=== PATIENT | female | born 2005 | race Caucasian/White ===

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

== ENCOUNTER 2023-10-11 22:49 | Emergency (ER) | payer OTHER ==
[~2023-10-11] VITALS: Ht 160 cm; Wt 87.1 kg
[2023-10-11 22:50] VITALS: BP 120/72; TEMP 97.2; O2SAT 99
== END 2023-10-12 00:43 | disposition home or self-care (01) ==
LOC: M ED 22:49
DX: Z20.811 Contact with and (suspected) exposure to meningococcus (principal); Z11.52 Encounter for screening for COVID-19; F12.10 Cannabis abuse, uncomplicated; Z87.891 Personal history of nicotine dependence; Z88.0 Allergy status to penicillin; Z79.899 Other long term (current) drug therapy

== ENCOUNTER 2023-11-06 10:05 | Emergency (ER) | payer OTHER ==
[~2023-11-06] VITALS: Ht 157.5 cm; Wt 86.2 kg
[2023-11-06 10:07] VITALS: BP 164/88; TEMP 98.2; O2SAT 97
[2023-11-06] MEDS ORDERED: NORG1TAB33 (10:13)
[2023-11-06 11:50] LABS: RSV AMPLIFICATION NEGATIVE (NEGATIVE)
[2023-11-06] MEDS ORDERED: ONDA-282 PO (12:25)
[2023-11-06] MEDS ORDERED: BENZ200C70 PO (12:25)
== END 2023-11-06 12:55 | disposition home or self-care (01) ==
LOC: M ED 10:05
DX: J02.9 Acute pharyngitis, unspecified (principal); B34.9 Viral infection, unspecified; F90.9 Attention-deficit hyperactivity disorder, unspecified type; F41.9 Anxiety disorder, unspecified; Z88.0 Allergy status to penicillin; Z79.899 Other long term (current) drug therapy

== ENCOUNTER 2024-03-13 10:39 | Emergency (ER) | payer OTHER ==
[~2024-03-13] VITALS: Ht 160 cm; Wt 86.4 kg
[~2024-03-13 10:39] MED LIST changes: +BENZ200C70 PO; +NORG1TAB33; +ONDA-282 PO
[2024-03-13 14:19] VITALS: BP 140/93; TEMP 97.4; O2SAT 100
== END 2024-03-13 14:20 | disposition home or self-care (01) ==
LOC: M ED 10:39
DX: M65.241 Calcific tendinitis, right hand (principal); Z88.0 Allergy status to penicillin; Z79.899 Other long term (current) drug therapy